=== PATIENT | female | born 2000 | race Caucasian/White ===

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

== ENCOUNTER 2020-03-09 17:55 | Emergency (ER) | payer MEDICAID ==
[~2020-03-09] VITALS: Ht 157.5 cm; Wt 108.4 kg
[~2020-03-09 17:55] MED LIST: IBUP-1022 PO; RISP1TAB3 PO; ZOLO50TA PO
[2020-03-09 18:47] LABS: BASO # 0.1 10^3/uL (0.0-0.2); BASO % 0.9 % (0.0-1.0); EOS # 0.5 10^3/uL (0.0-0.5); EOS % 6.7 % (0.0-3.0); HEMATOCRIT 41.1 % (36.0-47.0); HEMOGLOBIN 13.7 g/dl (12.0-15.5); LYMPH # 2.5 10^3/uL (1.5-5.0); LYMPH % 32.9 % (24.0-44.0); MEAN CORPUSCULAR HEMOGLOBIN 29.1 pg (27.0-33.0); MEAN CORPUSCULAR HGB CONC 33.3 g/dl (32.0-36.5); MEAN CORPUSCULAR VOLUME 87.3 fl (80.0-96.0); MONO # 0.4 10^3/uL (0.0-0.8); MONO % 5.1 % (0.0-5.0); NEUTROPHILS # 4.1 10^3/uL (1.5-8.5); NEUTROPHILS % 53.9 % (36.0-66.0); PLATELET COUNT, AUTOMATED 322 10^3/uL (150-450); RED BLOOD COUNT 4.71 10^6/uL (4.00-5.40); WHITE BLOOD COUNT 7.6 10^3/uL (4.0-10.0)
[2020-03-09 19:10] LABS: BLOOD UREA NITROGEN 7 MG/DL (7-18); CALCIUM LEVEL 8.8 MG/DL (8.5-10.1); CARBON DIOXIDE LEVEL 27 MEQ/L (21-32); CHLORIDE LEVEL 109 MEQ/L (98-107); CREATININE FOR GFR 0.56 MG/DL (0.55-1.30); GLUCOSE, FASTING 90 MG/DL (70-100); POTASSIUM SERUM 4.5 MEQ/L (3.5-5.1); SODIUM LEVEL 143 MEQ/L (136-145)
[2020-03-09] MEDS ORDERED: IBUP-1022 PO (20:47)
[2020-03-09 20:59] VITALS: BP 151/96
--- NOTE | 2020-03-11 09:04 | REP ---
KUB: Two views. History: Lower abdomen pain. Preliminary report is provided at the time of the exam by Dr. Werner. Findings: Umbilical jewelry is noted. Bowel gas pattern is normal. Psoas margins and flank stripes are intact. No mass, organomegaly, or pathologic calcification is seen. Impression: Negative abdomen views. Electronically Signed by Yung Blackman MD 03/11/2020 08:55 A
--- NOTE | 2020-03-11 10:41 | REP ---
PELVIC ULTRASOUND: Real-time sonographic evaluation of the pelvis is performed utilizing transabdominal and endovaginal technique. Bladder measures 2.8 x 3.2 x 6.4 cm. The uterus measures 6.9 x 3.4 x 4.7 cm. Endometrial thickness is 15 mm. Ovaries are normal in size and echotexture, right ovary measuring 4.2 x 2.1 x 3.7 cm and left ovary 3.1 x 1.8 x 2.3 cm. There is no adnexal mass or free fluid. There is no evidence of ovarian torsion, blood flow is seen in each ovary with duplex Doppler evaluation. IMPRESSION: Essentially negative pelvic ultrasound. Preliminary report provided by [facility] at the time of the exam. Electronically Signed by Roberto Kelly MD 03/11/2020 01:40 P
== END 2020-03-09 21:03 | disposition home or self-care (01) ==
LOC: M ED 17:55
DX: R10.2 Pelvic and perineal pain (principal); N92.6 Irregular menstruation, unspecified; J45.909 Unspecified asthma, uncomplicated; Z88.2 Allergy status to sulfonamides

== ENCOUNTER 2022-09-10 23:37 | Emergency (ER) | payer OTHER ==
[~2022-09-10] VITALS: Ht 154.9 cm; Wt 132.9 kg
[2022-09-10 23:37] VITALS: BP 106/49
[~2022-09-10 23:37] MED LIST changes: +RISP-8 PO; -RISP1TAB3 PO
== END 2022-09-11 02:44 | disposition left against medical advice (07) ==
LOC: M ED 23:37
DX: Z53.21 Procedure and treatment not carried out due to patient leaving prior to being seen by health care provider (principal)

== ENCOUNTER 2023-11-20 21:26 | Emergency (ER) | payer MEDICAID, OTHER, SELFPAY ==
[~2023-11-20] VITALS: Ht 160 cm; Wt 106.2 kg
[~2023-11-20 21:26] MED LIST changes: +RISP-105 PO; -RISP-8 PO
[2023-11-20 21:27] VITALS: BP 164/93; TEMP 97.2; O2SAT 98
[2023-11-20] MEDS ORDERED: AMOX500C PO (22:44)
[2023-11-20] MEDS ORDERED: DOXY-443 PO (22:44)
[2023-11-20] MEDS ORDERED: AMOXICILLIN 500 MG CAP PO ONE (22:45)
[2023-11-20] MEDS ORDERED: DOXYCYCLINE HYCLATE 100MG TABLET PO ONE (22:45)
== END 2023-11-20 22:55 | disposition home or self-care (01) ==
LOC: M ED 21:26
DX: L03.116 Cellulitis of left lower limb (principal); F12.10 Cannabis abuse, uncomplicated; F17.200 Nicotine dependence, unspecified, uncomplicated; J45.909 Unspecified asthma, uncomplicated; Z88.2 Allergy status to sulfonamides; Z79.2 Long term (current) use of antibiotics; Z79.899 Other long term (current) drug therapy